=== PATIENT | male | born 1985 | race Caucasian/White ===

== ENCOUNTER 2018-07-26 07:51 | Emergency (ER) | payer MEDICAID ==
[2018-07-26 08:09] VITALS: BP 156/96
[2018-07-26] MEDS ORDERED: MAG HYDROX/AL HYDROX/SIMETH 30 ML UDC PO STA (08:21)
[2018-07-26] MEDS ORDERED: LIDOCAINE VISCOUS 2% 15 ML UDC MM STA (08:22)
--- NOTE | 2018-07-26 08:24 | ED Physician Documentation ---
PD HPI CHEST PAIN - Stated complaint Stated Complaint: CHEST PX - Chief complaint Chief Complaint: General - History obtained from History obtained from: Patient - History of Present Illness Timing - onset: How many hours ago (1) Timing - onset during: Light activity (bending over) Timing - details: Still present Quality: Pain Location: Substernal Associated symptoms: Shortness of air. No: Diaphoresis, Nausea, Vomiting Similar symptoms before: No diagnosis - Additional information Additional information: The patient is a 33-year-old male who presents with substernal chest pain that started about 1 hour prior to arrival while bending over to put on his socks. He reports associated shortness of breath. He denies nausea, vomiting, or diaphoresis. He has had similar pain intermittently in the past but has never had it evaluated, thinking it was due to anxiety. Cardiac risk factors are positive for cigarette smoking and for family history of early [place]. He denies history of hypertension, diabetes, or hyperlipidemia. Review of Systems Constitutional: denies: Fever, Fatigue Ears: denies: Tinnitus/ringing Nose: denies: Congestion Throat: denies: Sore throat Cardiac: reports: Chest pain / pressure. denies: Palpitations Respiratory: reports: Dyspnea. denies: Cough GI: denies: Abdominal Pain, Nausea, Vomiting : denies: Dysuria Skin: denies: Rash Musculoskeletal: denies: Neck pain, Back pain, Extremity swelling Neurologic: denies: Focal weakness, Numbness, Headache PD PAST MEDICAL HISTORY - Past Medical History Cardiovascular: None Respiratory: None Endocrine/Autoimmune: None GI: GERD, Other : None HEENT: None Psych: Other Musculoskeletal: None Derm: None - Past Surgical History Past Surgical History: No - Present Medications Home Medications: Ambulatory Orders Medication Instructions Recorded Confirmed raNITIdine [Zantac] 150 mg PO BID #30 tablet 07/26/18 - Allergies Allergies/Adverse Reactions: Allergies Allergy/AdvReac Type Severity Reaction Status Date / Time No Known Drug Allergies Allergy Verified 03/30/16 13:22 - Social History Does the pt smoke?: Yes Smoking Status: Current every day smoker Does the pt drink ETOH?: Yes Does the pt have substance abuse?: No PD ED PE NORMAL - Vitals Vital signs reviewed: Yes (hypertensive) - General General: Alert and oriented X 3, Well developed/nourished, Other (Overweight.) - HEENT HEENT: Atraumatic, Moist mucous membranes, Pharynx benign - Neck Neck: No adenopathy, No JVD - Cardiac Cardiac: RRR, No murmur - Respiratory Respiratory: No respiratory distress, Clear bilaterally - Abdomen Abdomen: Soft, Other (Rotund abdomen, with tenderness to palpation in the epigastric region, without rebound or guarding.) - Back Back: No CVA TTP - Derm Derm: No rash - Extremities Extremities: No edema, No calf tenderness / cord - Neuro Neuro: Alert and oriented X 3, No motor deficit, Normal speech Results - Vitals Vitals: Vital Signs - 24 hr 07/26/18 08:06 Temperature 36.5 C Heart Rate 83 Respiratory 20 Rate Blood Pressure 156/96 H O2 Saturation 98 Oxygen O2 Source Room air - EKG (time done) 08:00 Rate: Rate (enter#) (86) Rhythm: NSR [place]: Normal Intervals: Normal [place] QRS: Normal Ischemia: ST elevation c/w repol Computer interpretation: Agree with computer PD MEDICAL DECISION MAKING - ED course Complexity details: reviewed results, re-evaluated patient, considered differential, d/w patient ED course: The patient's presentation is most consistent with gastroesophageal reflux. His symptoms resolved completely after administration of GI cocktail. His electrocardiogram reveals no acute ischemic abnormalities. His presentation does not suggest pulmonary etiology. He is being discharged with prescription for ranitidine. I discussed with him the diagnosis, exacerbating factors, outpatient follow-up, as well as potentially worrisome signs or symptoms that should prompt reevaluation in the emergency department. Departure - Departure Disposition: 01 Home, Self Care Clinical Impression: GERD (gastroesophageal reflux disease) Qualifiers: Esophagitis presence: esophagitis presence not specified Qualified Code(s): K21.9 - Gastro-esophageal reflux disease without esophagitis Condition: Stable Instructions: ED GERD Follow-Up: [facility] [Provider Group] Prescriptions: raNITIdine [Zantac] 150 mg PO BID #30 tablet Comments: Minimize coffee, naresh, and alcohol. Take ranitidine twice daily as prescribed. You can use liquid antacid, such as Maalox or Mylanta, if you develop recurrent symptoms. Follow-up with your primary physician within 2 weeks. Call to schedule an appo intment. Return to the emergency department if you develop increasing pain, or otherwise worsening symptoms. Forms: Activity restrictions Discharge Date/Time: 07/26/18 09:11
[2018-07-26] MEDS ORDERED: LIDOCAINE VISCOUS 2% 15 ML UDC MM ONE (08:30)
== END 2018-07-26 09:11 | disposition home or self-care (01) ==
LOC: ED 07:51
DX: K21.9 Gastro-esophageal reflux disease without esophagitis (principal); F17.200 Nicotine dependence, unspecified, uncomplicated; Z82.49 Family history of ischemic heart disease and other diseases of the circulatory system
CPT/HCPCS: 93005; 99283; A9270

== ENCOUNTER 2018-09-30 13:26 | Emergency (ER) | payer MEDICAID ==
[2018-09-30 13:39] VITALS: BP 134/80
--- NOTE | 2018-09-30 15:14 | ED Physician Documentation ---
PD HPI ABD PAIN - Stated complaint Stated Complaint: LOWER ABD PX - Chief complaint Chief Complaint: Abd Pain - History obtained from History obtained from: Patient PD PAST MEDICAL HISTORY - Past Medical History Cardiovascular: None Respiratory: None Endocrine/Autoimmune: None GI: GERD, Other : None HEENT: None Psych: Other Musculoskeletal: None Derm: None - Past Surgical History Past Surgical History: No - Present Medications Home Medications: Ambulatory Orders Medication Instructions Recorded Confirmed raNITIdine [Zantac] 150 mg PO BID #30 tablet 07/26/18 - Allergies Allergies/Adverse Reactions: Allergies Allergy/AdvReac Type Severity Reaction Status Date / Time strawberry Allergy Unknown Verified 09/30/18 13:40 - Social History Does the pt smoke?: Yes Smoking Status: Current every day smoker Does the pt drink ETOH?: Yes Does the pt have substance abuse?: No - Immunizations Immunizations are current?: Yes Results - Vitals Vitals: Vital Signs - 24 hr 09/30/18 09/30/18 13:36 14:17 Temperature 36.8 C Heart Rate 91 Respiratory 14 18 Rate Blood Pressure 134/80 H O2 Saturation 97 Oxygen O2 Source Room air
== END 2018-09-30 15:21 | disposition left against medical advice (07) ==
LOC: ED 13:26
DX: Z53.21 Procedure and treatment not carried out due to patient leaving prior to being seen by health care provider (principal)
CPT/HCPCS: 99282

== ENCOUNTER 2018-11-04 14:44 | Emergency (ER) | payer MEDICAID ==
--- NOTE | 2018-11-04 15:03 | ED Physician Documentation ---
PD HPI UPPER EXT INJURY - Stated complaint Stated Complaint: RT ARM INJ/NAUSEA - Chief complaint Chief Complaint: Trauma Ext - History obtained from History obtained from: Patient - History of Present Illness Location: Right, Shoulder Type of injury: Fall Review of Systems Skin: denies: Abrasion (s), Laceration (s) Musculoskeletal: denies: Neck pain Neurologic: denies: Focal weakness, Numbness PD PAST MEDICAL HISTORY - Past Medical History Cardiovascular: None Respiratory: None Endocrine/Autoimmune: None GI: GERD, Other : None HEENT: None Psych: Other Musculoskeletal: None Derm: None Other Past Medical History: chronic knee pain - Past Surgical History Past Surgical History: Yes - Present Medications Home Medications: Ambulatory Orders Medication Instructions Recorded Confirmed RX: raNITIdine [Zantac] 150 mg PO BID #30 tablet 07/26/18 Methocarbamol [Robaxin] 500 mg PO Q6H PRN #20 tablet 11/04/18 RX: Naproxen 500 mg PO BID #20 tablet 11/04/18 - Allergies Allergies/Adverse Reactions: Allergies Allergy/AdvReac Type Severity Reaction Status Date / Time strawberry Allergy Unknown Verified 11/04/18 14:52 - Social History Does the pt smoke?: Yes Smoking Status: Current every day smoker Does the pt drink ETOH?: Yes ETOH Use: Beer Does the pt have substance abuse?: No - Immunizations Immunizations are current?: Yes PD ED PE NORMAL - Vitals Vital signs reviewed: Yes - General General: Alert and oriented X 3, Well developed/nourished, Other (He appears uncomfortable with guarded range of motion and not really allowing much palpation or attempted range of motion at the proximal humerus nor shoulder girdle. No gross deformity.) - Neck Neck: No bony TTP - Derm Derm: Normal color, Warm and dry - Extremities Extremities: No: Normal ROM s pain (He has guarded range of motion at the right shoulder. He is reluctant to flex and extend the elbow because of pain in the proximal humeral area. Any attempted range of motion of the shoulder is also guarded. He is tender to palpation around the biceps and triceps area as well as the around the shoulder itself in the suprascapular area of the shoulder girdle. The claw collarbone itself is not tender. There is some tenderness at the AC joint.) - Neuro Neuro: No motor deficit, No sensory deficit Results - Vitals Vitals: Vital Signs - 24 hr 11/04/18 15:59 Temperature 36.9 C Heart Rate 74 Respiratory 19 Rate Blood Pressure 136/87 H O2 Saturation 94 Oxygen O2 Source Room air - Rads (name of study) right shoulder Radiology: Prelim report reviewed (no fractures nor dislocations), See rad report PD MEDICAL DECISION MAKING - ED course Complexity details: reviewed results, considered differential (Who is injury to the area. He is diffusely tender enough and guarded on range of motion that is really hard to isolate triceps muscle versus rotator cuff versus other muscles. Will sling him and go with anti-inflammatories and pain meds and have him follow-up with orthopedics. There is no obvious fractures no dislocations and so this treatment would be a commonality for the remaining conditions.), d/w patient Departure - Departure Disposition: 01 Home, Self Care Clinical Impression: Sprain of right upper arm Qualifiers: Encounter type: initial encounter Qualified Code(s): S53.401A - Unspecified sprain of right elbow, initial encounter Condition: Stable Record reviewed to determine appropriate education?: Yes Instructions: ED Sprain Shoulder Follow-Up: Avelino Tolbert MD [Provider Admit Priv/Credential] - Prescriptions: Methocarbamol [Robaxin] 500 mg PO Q6H PRN #20 tablet PRN Reason: Spasms RX: Naproxen 500 mg PO BID #20 tablet Comments: Use a sling to support the shoulder. No overhead reaching, push pull, heavy lifting with that arm for a week or so. Progress activity as able. Gentle range of motion of the shoulder periodically over the next several days to week so it does not stiffen up. Use some anti-inflammatories such as naproxen twice daily. You could add muscle relaxant methocarbamol if needed for stiffness around the shoulder joint. Follow-up with orthopedics if not improved over the next week. At that point it should be hurting less enough to be able to better distinguish which muscles or tendons may be injured. There are no fractures on x-ray. Forms: Activity restrictions Discharge Date/Time: 11/04/18 16:19
[2018-11-04] MEDS ORDERED: ACETAMINOPHEN 500 MG TABLET PO STA (15:12)
[2018-11-04] MEDS ORDERED: IBUPROFEN 600 MG TABLET PO STA (15:12)
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
[2018-11-04 15:59] VITALS: BP 136/87
== END 2018-11-04 16:19 | disposition home or self-care (01) ==
LOC: ED 14:44
DX: S43.401A Unspecified sprain of right shoulder joint, initial encounter (principal); V57.0XXA Driver of pick-up truck or van injured in collision with fixed or stationary object in nontraffic accident, initial encounter; W22.11XA Striking against or struck by driver side automobile airbag, initial encounter; Y92.410 Unspecified street and highway as the place of occurrence of the external cause; F17.200 Nicotine dependence, unspecified, uncomplicated
CPT/HCPCS: 73060; 99283; A9270

== ENCOUNTER 2020-01-10 23:48 | Emergency (ER) | payer MEDICAID ==
--- NOTE | 2020-01-11 00:32 | ED Physician Documentation ---
PD HPI LOWER EXT INJURY - Stated complaint Stated Complaint: ANKLE PX - Chief complaint Chief Complaint: Trauma Ext - History obtained from History obtained from: Patient - History of Present Illness PD HPI LOW EXT INJURY LOCATION: Left, Ankle, Foot Type of injury: Twist Timing - onset: Yesterday Timing - details: Abrupt onset Pain level now: 8 Improved by: Rest, Immobilization Worsened by: Moving, Palpating Associated symptoms: Swelling Similar symptoms before: Has not had sx before Recently seen: Not recently seen - Additional information Additional information: twisted ankle when he stepped into a hole while playing with his dog yesterday, c/o sudden onset left ankle and foot pain that has gradually worsened since incident. distinctly worse with movement, palpation, weight-bearing. drove self to ED Review of Systems Skin: denies: Abrasion (s), Laceration (s) Musculoskeletal: reports: Extremity pain, Joint pain, Extremity swelling, Joint swelling, Pain with weight bearing Neurologic: denies: Focal weakness, Numbness PD PAST MEDICAL HISTORY - Past Medical History Cardiovascular: None Respiratory: None Endocrine/Autoimmune: None GI: GERD, Other : None HEENT: None Psych: Other Musculoskeletal: Gout Derm: None - Past Surgical History Past Surgical History: Yes - Present Medications Home Medications: Ambulatory Orders Medication Instructions Recorded Confirmed raNITIdine [Zantac] 150 mg PO BID #30 tablet 07/26/18 Naproxen 500 mg PO BID #20 tablet 11/04/18 methocarbamoL [Robaxin] 500 mg PO Q6H PRN #20 tablet 11/04/18 Oxycodone HCl/Acetaminophen 1 - 2 each PO Q6H PRN #20 tablet 01/11/20 [Percocet 5-325 mg Tablet] - Allergies Allergies/Adverse Reactions: Allergies Allergy/AdvReac Type Severity Reaction Status Date / Time strawberry Allergy Unknown Verified 01/11/20 00:00 - Social History Does the pt smoke?: Yes Smoking Status: Current every day smoker Does the pt drink ETOH?: Yes Does the pt have substance abuse?: No - Immunizations Immunizations are current?: Yes PD ED PE NORMAL - Vitals Vital signs reviewed: Yes - General General: Alert and oriented X 3, Well developed/nourished, Other (appears uncomfortable due to pain) - Neuro Neuro: No motor deficit, No sensory deficit PD ED PE EXPANDED - Extremities Extremities: Tenderness, Limited ROM, Swelling, Left ankle, Left foot Results - Vitals Vitals: Vital Signs - 24 hr 01/10/20 01/11/20 23:57 03:22 Temperature 36.4 C L 37.0 C Heart Rate 90 83 Respiratory 14 19 Rate Blood Pressure 147/102 H 145/93 H O2 Saturation 98 98 Oxygen O2 Source Room air - Rads (name of study) left ankle xrays Radiology: Prelim report reviewed, See rad report left foot xrays Radiology: Prelim report reviewed, See rad report Procedures - Splint (location) Lower extremity left Splint applied by: Tech Type of splint: Ankle airsplint Other: Patient tolerated well, No complications, Neurovascular intact, Good alignment, Crutches provided PD MEDICAL DECISION MAKING - ED course Complexity details: reviewed results, re-evaluated patient, considered differential, d/w patient Departure - Departure Disposition: 01 Home, Self Care Clinical Impression: Sprain of left ankle Condition: Good Instructions: ED Sprain Ankle W X Ray, ED Crutch Walking, ED Sprain Foot Follow-Up: Suhail Julien MD [Provider Admit Priv/Credential] - Prescriptions: Oxycodone HCl/Acetaminophen [Percocet 5-325 mg Tablet] 1 - 2 each PO Q6H PRN #20 tablet PRN Reason: pain Discharge Date/Time: 01/11/20 03:24
[2020-01-11] MEDS ORDERED: IBUPROFEN 800 MG TABLET PO STA (00:41)
[2020-01-11] MEDS ORDERED: oxyCODONE/ACET 5/325 Prepack 4 PO STA (02:31)
[2020-01-11 03:23] VITALS: BP 145/93
--- NOTE | 2020-01-11 08:47 | XRAY Report ---
PROCEDURE: Ankle 3 View LT INDICATIONS: injury, pain, tenderness TECHNIQUE: 3 views of the ankle were acquired. COMPARISON: None. FINDINGS: Bones: There is a linear lucency through the base of a prominent posterior talar osteophyte projecti ng off the posterior talar process. No other fractures or dislocations. Ankle mortise is normally al igned. No suspicious bony lesions. Prominent plantar calcaneal enthesophyte. Degenerative changes o f the dorsal left midfoot are present. Soft tissues: No tibiotalar joint effusion. Achilles tendon appears normal. IMPRESSION: 1. Possible minimally displaced fracture through the base of an osteophyte at the posterior process o f the talus. Recommend correlating with physical examination. 2. Prominent plantar calcaneal enthesophyte. No significant discrepancy with initial interpretation by overnight radiologist. Reviewed by: Waldo Angulo MD on 01/11/2020 8:45 AM PDT Approved by: Waldo Angulo MD on 01/11/2020 8:45 AM PDT Station ID: [id number]
--- NOTE | 2020-01-11 08:52 | XRAY Report ---
PROCEDURE: Foot 3 View LT INDICATIONS: fall, pain, tenderness TECHNIQUE: 3 views of the foot were acquired. COMPARISON: Ankle radiographs from same day. FINDINGS: Bones: There is a minimally displaced fracture involving the distal margin of the hallux sesamoid lucina ne. This appears age indeterminate. Previously described fracture at the base of a prominent osteophy te off the posterior talar process is not as conspicuous on this examination. No other fractures visu alized. Prominent plantar calcaneal enthesophyte. Hallux valgus angulation of the left great toe with associated degenerative change. Dorsal left midfoot osteoarthrosis. No significant overlying soft ti ssue swelling. Overall osseous alignment of the left foot is maintained. No suspicious bony lesions. Soft tissues: No tibiotalar joint effusion. Achilles tendon appears normal. IMPRESSION: 1. Minimally displaced age indeterminate fracture involving the distal margin of the hallux sesamoid bone. Recommend correlating with physical examination. 2. Previously described fracture at the base of a prominent osteophyte off the posterior talar proces s is not well-visualized. Please see separate report of left ankle for further details. 3. Prominent plantar calcaneal enthesophyte. No significant discrepancy with initial interpretation by overnight radiologist. Reviewed by: Waldo Angulo MD on 01/11/2020 8:51 AM PDT Approved by: Waldo Angulo MD on 01/11/2020 8:51 AM PDT Station ID: [id number]
== END 2020-01-11 03:24 | disposition home or self-care (01) ==
LOC: ED 23:48
DX: S93.402A Sprain of unspecified ligament of left ankle, initial encounter (principal); X50.1XXA Overexertion from prolonged static or awkward postures, initial encounter; Y93.K9 Activity, other involving animal care; Y92.096 Garden or yard of other non-institutional residence as the place of occurrence of the external cause; F17.200 Nicotine dependence, unspecified, uncomplicated
CPT/HCPCS: 73610; 73630; 99283; A9270

== ENCOUNTER 2020-04-25 14:07 | Outpatient (CLI) | payer MEDICAID ==
--- NOTE | 2020-04-25 15:21 | SLEEP CARE CONSULTATION ---
Information from patient questionnaire entered by Sarah Parker. I have reviewed and concur with the information entered by Sarah Parker. This document represents the service I personally performed and the decisions made by me, Keiry Servin ARNP. History of Present Illness Service Date and Time: 04/25/2020 1407 Reason for Visit: New patient Chief Complaint: reports: Unrefreshed sleep (sometimes), Snoring, Observed pauses in breathing, Frequent awakenings at night, Other (not getting deep enough sleep, lack of sleep). denies: Insomnia, Excessive daytime sleepiness, Fatigue Date of Onset: Over 5 years Usual bedtime: 6:00 AM Time it takes to fall asleep: 30 min Snores at night: Yes Observed to quit breathing while asleep: Yes Sleeps alone due to snoring: No Number of times waking at night: 3-4 Reasons for waking at night: reports: Snoring, Gasping for air, Other (Stop breathing and baby). denies: Choking Toss, Turn, or Twitch while sleeping: Yes Recalls having dreams: No Usually gets out of bed at: 11:00 AM Feels refreshed in the morning: No Morning headache: No Sleepy or fatigued during the day: Yes (Yes and no) Ever fallen asleep while driving: No Takes day naps: Yes Dreams during day naps: Yes Prior sleep studies: No Additional HPI information: I had the pleasure of seeing VALENTIN FLORES today regarding the possibility of him having a sleep disorder. His current complaints are snoring and observed pauses in breathing. He feels that he is not always getting refreshed sleep, he has a lack of sleep and doesn't feel he gets enough deep sleep. 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 He did this for a year and now recently restarted the last four months. He is more worried about the pauses in breathing when on his back and his loud snore. His sleeps in same bed. His father is a very loud snorer and has to sleep in a chair. He has never been evaluated for sleep apnea. - Parasomnia Symptoms Ever been unable to move upon waking from sleep: No Walks in sleep: No Talks in sleep: Yes Ever acted out dreams in sleep: No Ever felt weak in the knees when startled or emotional: No Bothered by creepy, crawly, restless sensations in legs: Yes (and no) Problems with memory or concentration: Yes (very forgetful) Subjective Initial [place] Sleepiness Scale score: 9 (in 2020) Past Medical History Past Medical History: reports: Gout, Anxiety, GERD. denies: Hypertension, Arrythmia, Depression Social History The patient's occupation is a garbage truck driver. Patient is Single and lives in [place]. Have you smoked in the past 12 months: Yes Cigarettes per day (20/pack): 20 Years of smokin Smoking Pack Years: 8.0 Alcohol use: Yes Alcohol amount and frequency: Once or twice a week Caffeine use: Yes Caffeine amount and frequency: 2-3 cups of coffee in morning; 1-2 more in afternoon before work Family History Family history of sleep disordered breathing: Yes (Dad) Family Hx Sleep Apnea: Father: Snoring (sister), Sibling: Snoring Allergies and Home Medications Drug allergies reviewed: Yes (NKDA) Home medication list reviewed: Yes Allergy and home medication list: Zantac Ibuprofen, as needed Review of Systems Weight gain over past 5 years: 20 Weight loss over past 5 years: 30 Cardiovascular: denies: high blood pressure Respiratory: reports: shortness of breath Gastrointestinal: reports: heartburn Urinary: reports: urgency Neurological: denies: headaches Psychiatric: reports: anxiety Ear/Nose/Throat: reports: sinus problems (deviated septum), injury to nose (nose broken 3 times), wisdom teeth removed. denies: nasal congestion, tonsillectomy Immunologic: reports: allergies to food or environment (strawberries) Physical Exam Blood Pressure: 121/81 Cuff size: wrist Heart Rate: 80 O2 Saturation: 98 Height: 5 ft 4 in Weight: 263 lb Body Mass Index: 45.1 BMI Classification: Morbidly Obese Neck circumference: 18 (inches) Nasal exam: positive: erythema Nostrils: patent to airflow Turbinates: swollen Mouth and throat: narrow oropharynx Hard palate: arched Uvula visualization: 50% Mallampati Class II Tongue: enlarged in size with teeth newton on lateral edges Tonsils: 2+ Heart: regular rate and rhythm Lungs: clear bilaterally Impression and Plan 1. Suspected Obstructive Sleep Apnea-Hypopnea Syndrome, as suggested by a history of loud and irregular snoring, observed cessation of breath while asleep, gasping or choking in sleep, frequent awakening during the night, unrefreshed sleep, and cognitive impairment. I reviewed with patient that a narrow oropharynx and obesity are common predisposing factors for obstructive sleep apnea-hypopnea syndrome. I recommend proceeding to polysomnography to confirm the diagnosis and to assess severity. If the patient has significant sleep disordered breathing, a manual CPAP titration study will also be performed to find the optimal treatment pressure. I informed the patient of what the sleep studies involve and after some discussion, obtained agreement to proceed. The pathophysiology of obstructive sleep apnea-hypopnea syndrome was discussed with the patient and health risks of cardiovascular and cerebrovascular disease if not treated. AAS brochure for obstructive sleep apnea-hypopnea syndrome given and reviewed. Risks of drowsy driving discussed in detail and patient advised to avoid long distance driving and to pull worker at the first sign of drowsiness. Patient agreed to plan. * Schedule polysomnography +- manual CPAP titration study and return in 1-2 weeks after the study to discuss result and initiate therapy. * Avoid long distance driving or driving when feeling sleepy. * Avoid alcohol, sedative and muscle relaxant around bedtime. * Attempt to lose weight. * Review instructions provided by trained office staff on how to prepare for the sleep study. * Return for follow-up after sleep study completed. Counseling Topics: Weight loss health impact Visit Type: In Office Time Spent with Patient (minutes): 30 Provider Statement: I spent 100% of the Face to Face Visit with the patient with greater than 50% spent counseling the patient and coordination of care.
[2020-04-25 15:22] VITALS: BP 121/81
== END 2020-04-25 14:08 | disposition home or self-care (01) ==
LOC: SC 14:07
PROVIDERS: ATTEND Nurse Practitioner Family
DX: G47.8 Other sleep disorders (principal); R41.89 Other symptoms and signs involving cognitive functions and awareness; R06.81 Apnea, not elsewhere classified; R06.83 Snoring; E66.01 Morbid (severe) obesity due to excess calories; Z68.42 Body mass index [BMI] 45.0-49.9, adult
CPT/HCPCS: 99203; 99212

== ENCOUNTER 2020-07-11 13:43 | Outpatient (CLI) | payer MEDICAID | END 2020-07-11 13:44 | disposition home or self-care (01) | LOC: SC 13:43 | PROVIDERS: ATTEND Nurse Practitioner Family | DX: G47.33 Obstructive sleep apnea (adult) (pediatric) (principal); R09.02 Hypoxemia; E66.9 Obesity, unspecified; Z68.42 Body mass index [BMI] 45.0-49.9, adult | CPT/HCPCS: 95806 ==

== ENCOUNTER 2022-01-28 08:44 | Outpatient (CLI) | payer MEDICAID ==
--- NOTE | 2022-01-28 10:41 | XRAY Report ---
PROCEDURE: Knee 3 View RT INDICATIONS: RIGHT KNEE PAIN TECHNIQUE: 3 views of the right knee(s) were acquired. COMPARISON: None. FINDINGS: Bones: No fractures or dislocations. No suspicious bony lesions. Chronic fragmentation of the ante rior tibial tubercle. Mild tricompartment periareolar articular osteophyte formation. Soft tissues: Moderate joint effusion. No suspicious soft tissue calcifications. IMPRESSION: 1. Mild osteoarthritis. 2. Findings suggestive of remote Clare-Schlatter disease. 3. Knee joint effusion. 4. No acute fracture. No osseous lesion. If symptoms and/or clinical suspicion for pathology continue , further assessment with repeat plain films, or advanced imaging (e.g., CT, MRI, or bone scan) is re commended for further assessment. Reviewed by: Theresa Muir MD on 01/28/2022 10:39 AM PDT Approved by: Theresa Muir MD on 01/28/2022 10:39 AM PDT Station ID: [id number]
== END 2022-01-28 08:45 | disposition home or self-care (01) ==
LOC: DI.S 08:44
PROVIDERS: ATTEND Physician Assistant
DX: M25.461 Effusion, right knee (principal); M17.11 Unilateral primary osteoarthritis, right knee

== ENCOUNTER 2022-02-19 08:00 | Outpatient (CLI) | payer OTHER, MEDICAID ==
--- NOTE | 2022-02-19 15:41 | XRAY Report ---
PROCEDURE: Knee 3 View RT INDICATIONS: RIGHT KNEE PAIN TECHNIQUE: 3 views of the right knee(s) were acquired. One view of the left. COMPARISON: Right knee radiographs 01/28/2022. FINDINGS: Bones: No fractures or dislocations. Fragmentation at the tibial tuberosity is unchanged. Tiny osteo phyte. No suspicious bony lesions. Soft tissues: Small joint effusion. No suspicious soft tissue calcifications. IMPRESSION: Mild DJD at the right knee. Small joint effusion. Stable fragmentation of the tibial tuberosity which could be the sequelae of Clare-Schlatter's disea se. Reviewed by: Norberto Baez MD on 02/19/2022 3:40 PM PDT Approved by: Norberto Baez MD on 02/19/2022 3:40 PM PDT Station ID: [id number]
== END 2022-02-19 23:59 | disposition home or self-care (01) ==
LOC: DI.WOS 08:00
PROVIDERS: ATTEND Orthopaedic Surgery
DX: M17.11 Unilateral primary osteoarthritis, right knee (principal); M25.461 Effusion, right knee

== ENCOUNTER 2022-06-23 23:20 | Emergency (ER) | payer OTHER, MEDICAID ==
--- OUTSIDE RECORDS SUMMARY | 2022-06-23 23:29 | EXTERNAL MEDICAL SUMMARY RPT | Continuity of Care Document ---
:1985 Author Organization [facility] Address [address] [place] [address] Phone Care Team Providers Name Role Phone Unavailable Unavailable Unavailable Isabel Aleman Unavailable Unavailable Allergies No information. Encounters No information. Functional Status No information. Immunizations No information. Medications No information. Problems No information. Procedures date description facility 2022-05-22 00:00 Visit Code Hold [facility] Brian Results/Labs No information. Social History date description facility 2022-05-22 00:00 Current every day smoker [facility] joy Vital Signs date measurement value units 2022-05-22 00:00 BMI 46.33 kg/m2 2022-05-22 00:00 BP_diastolic 90 mmHg 2022-05-22 00:00 BP_systolic 132 mmHg 2022-05-22 00:00 heart_rate 83 /min 2022-05-22 00:00 height_metric 167.64 cm 2022-05-22 00:00 height_standard 66 in 2022-05-22 00:00 respiration_rate 16 /min 2022-05-22 00:00 temperature_metric 36.11 C 2022-05-22 00:00 temperature_standard 97 F 2022-05-22 00:00 weight_metric 129.73 kg 2022-05-22 00:00 weight_standard 286 lb
[2022-06-23 23:33] VITALS: BP 159/94
[2022-06-23] MEDS ORDERED: BACITRACIN ZINC OINT 1 PACKET TOP STA (23:43)
--- NOTE | 2022-06-23 23:45 | ED Physician Documentation ---
PD HPI UPPER EXT INJURY - Stated complaint Stated Complaint: LT FINGER LAC - Chief complaint Chief Complaint: Laceration - History obtained from History obtained from: Patient - Additonal information Additional information: Pt comes to the ED with CC of L index finger laceration accidentally with razor knife at work tonight. No other injuries. Last tetanus within past 10 years. No compromised strength/movement since injury. PD PAST MEDICAL HISTORY - Past Medical History Cardiovascular: None Respiratory: None Endocrine/Autoimmune: None GI: GERD, Other : None HEENT: None Psych: Other Musculoskeletal: Gout Derm: None - Past Surgical History Past Surgical History: Yes - Present Medications Home Medications: Ambulatory Orders Medication Instructions Recorded Confirmed raNITIdine [Zantac] 150 mg PO BID #30 tablet 07/26/18 Naproxen 500 mg PO BID #20 tablet 11/04/18 methocarbamoL [Robaxin] 500 mg PO Q6H PRN #20 tablet 11/04/18 Oxycodone HCl/Acetaminophen 1 - 2 each PO Q6H PRN #20 tablet 01/11/20 [Percocet 5-325 mg Tablet] - Allergies Allergies/Adverse Reactions: Allergies Allergy/AdvReac Type Severity Reaction Status Date / Time strawberry Allergy Unknown Verified 01/11/20 00:00 - Social History Does the pt smoke?: Yes Smoking Status: Current every day smoker Does the pt drink ETOH?: Yes Does the pt have substance abuse?: No - Immunizations Immunizations are current?: Yes PD ED PE NORMAL - Vitals Vital signs reviewed: Yes - General General: Alert and oriented X 3, No acute distress, Well developed/nourished - HEENT HEENT: Atraumatic, PERRL, EOMI, Moist mucous membranes - Neck Neck: Supple, no meningeal sign - Cardiac Cardiac: Strong equal pulses - Respiratory Respiratory: No respiratory distress - Derm Derm: Normal color, Warm and dry, No rash, Other (5 mm laceration to radial aspect L index finger. Bleeding controlled. Depth extends to SQ fat. Does not overlie tendon tract.) - Extremities Extremities: No deformity, Normal ROM s pain, Other (Intact strength of flexion and extension at all joints of L index finger.) - Neuro Neuro: Alert and oriented X 3 - Psych Psych: Normal mood, Normal affect Results - Vitals Vitals: Oxygen O2 Source Room air Procedures - Laceration (location) L index finger Length in cm: 0.5 Wound type: Linear, Into subcut fat, Clean Neurovascular status: Sensory intact, Motor intact, Vascular intact Tendon involvement: Tendon intact Anesthesia: Lidocaine 1% Wound preparation: Hibiclens, Irrigated copiously NS, Wound explored, To the base Skin layer closure: Interrupted, Size #-0 - enter number (5.0), Sutures - enter # (1), Other (vicryl) Other: Patient tolerated well, No complications, Dressing applied, Tetanus UTD PD Medical Decision Making - ED course Complexity details: considered differential, d/w patient ED course: I d/w pt that his lac is very small, and would likely do well closing on its own. 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 This was done, as above. We have discussed wound care at home, as well as the usual indications for return. Departure - Departure Disposition: 01 Home, Self Care Clinical Impression: Laceration Condition: Stable Instructions: ED Laceration Hand Comments: You have a very small cut which will heal well. A single suture has been placed. This is an absorbable suture, meaning that it will disintegrate on its own and fall out. Since the cut is very short, it would heal well even without the suture, and as such, if you would like to snip the suture out after 5 days, you may. Please keep the wound clean and generally dry otherwise. You may let water or soap run over the wound but please do not rub, scrub, or immerse the wound until the sutures out. If you notice redness or swelling spreading progressively away from the wound, please have it rechecked. Discharge Date/Time: 06/23/22 23:51
== END 2022-06-23 23:51 | disposition home or self-care (01) ==
LOC: ED 23:20
DX: S61.211A Laceration without foreign body of left index finger without damage to nail, initial encounter (principal); W26.0XXA Contact with knife, initial encounter; Y92.89 Other specified places as the place of occurrence of the external cause; Y99.0 Civilian activity done for income or pay; F17.200 Nicotine dependence, unspecified, uncomplicated
CPT/HCPCS: 12001; 99282; A9270

== ENCOUNTER 2022-07-19 08:22 | Outpatient (CLI) | payer OTHER ==
--- NOTE | 2022-07-19 15:01 | MRI Report ---
PROCEDURE: KNEE WO - RT INDICATIONS: RIGHT PATELLOFEMORAL SYN TECHNIQUE: Noncontrast sagittal PD fast spin echo and T2 fast spin echo with fat saturation, sagittal 3-D gradie nt sequence with fat saturation; coronal T1 spin echo and PD fast spin echo with fat saturation, and axial PD fast spin echo with fat saturation through the knee. COMPARISON: X-ray right knee, 02/19/2022. FINDINGS: Image quality: Excellent. Menisci: There is large complex tear involving the posterior horn and body of the lateral meniscus. T here is a small radial tear in the free edge of the anterior horn of the lateral meniscus. Intrasubst ance degeneration is noted of the anterior horn the lateral meniscus. The medial meniscus demonstrates normal morphology and internal signal. Cruciate ligaments: The anterior and posterior cruciate ligaments appear intact. Medial structures: The medial collateral ligament appears intact. The semimembranosus tendon insert ions and meniscocapsular junction appear intact. Visualized portions of the pes anserinus tendons ap pear normal. No abnormal bursal fluid. Lateral structures: The lateral collateral ligament and the biceps femoris tendon appear intact. Th e popliteus tendon appears normal. Iliotibial band appears normal. Anterior structures: The quadriceps and patellar tendons appear intact. Moderate quadriceps tendini tis and patellar tendinitis. There is an ossicle in the tibial tubercle at the quadriceps tendon anibal chment in keeping with Clare-Schlatter disease. Patellar alignment is normal. No femoral trochlear dysplasia or ventral trochlear prominence. No edema in the infrapatellar fat pad. Bones and cartilage: No bone marrow contusions or fractures. Fragmentation of the tibial tubercle c onsistent with Clare-Schlatter disease. There is mild cartilage thinning and fibrillation in the lateral femorotibial compartment. Near full -thickness cartilage fissures are seen in the lateral femoral condyle and lateral tibial plateau. Joint space: There is small knee joint effusion. No Hinton's cyst. Normal appearing synovial plicae are incidentally noted. There are foci enlarged lymph nodes posterior to the knee. IMPRESSION: 1. Complex tear of the body and posterior horn the lateral meniscus. There is also a small radial tea r of the anterior horn of the lateral meniscus. 2. Loss of cartilage in the lateral femorotibial compartment. 3. Phoenix-Schlatter disease. 4. Moderate quadriceps and patellar tendinitis. 5. Small knee joint effusion. Reviewed by: Tong Fowler MD on 07/19/2022 1:59 PM AKDT Approved by: Tong Fowler MD on 07/19/2022 1:59 PM AKDT Station ID: [id number]
== END 2022-07-19 08:23 | disposition home or self-care (01) ==
LOC: DI 08:22
PROVIDERS: ATTEND Orthopaedic Surgery
DX: S83.271A Complex tear of lateral meniscus, current injury, right knee, initial encounter (principal); M92.521 Juvenile osteochondrosis of tibia tubercle, right leg; M25.461 Effusion, right knee

== ENCOUNTER 2022-10-16 06:37 | Day surgery (SDC) | payer OTHER, MEDICAID ==
--- NOTE | 2022-10-15 12:30 | ANESTHESIA ---
Pre-Anesthesia VS, & Labs - Diagnosis right lateral meniscus tear, internal derangement right knee - Procedure right knee arthroscopy w partial meniscus repair Height: 5 ft 4 in - NPO >8 hours Home Medications and Allergies Acetaminophen [Tylenol] 500 mg PO DAILY PRN 09/11/22 Ibuprofen 200 mg PO DAILY PRN 09/11/22 Allergies/Adverse Reactions: Allergies Allergy/AdvReac Type Severity Reaction Status Date / Time strawberry Allergy Severe Anaphylaxis Verified 10/16/22 07:01 latex AdvReac Rash Verified 10/16/22 07:01 Anes History & Medical History - Anesthetic History Anesthesia Complications: reports: Post-Operative Nausea/Vomiting, Other-see comment (combative) Family history of Anesthesia Complications: Denies Family history of Malignant Hyperthermia: Denies - Medical History Cardiovascular: reports: None Pulmonary: reports: Sleep apnea (no CPAP, poss severe VNAITA, discussed potential for extended monitoring postop) Gastrointestinal: reports: GERD (rare diet related symptoms), Other Urinary: reports: None Neuro: reports: None Musculoskeletal: reports: Gout Endocrine/Autoimmune: reports: None Blood Disorders: reports: None Skin: reports: None Smoking Status: Current every day smoker - Surgical History General: reports: Other Exam General: Alert, Oriented x3, Cooperative Dental: WNL Mouth Opening: Greater than 4 Fingerbreadths Neck Mobility: Normal Mallampati classification: II Thyromental Distance: 4-6 cm (martines) Plan Anesthesia Type: General Consent for Procedure(s) Verified and Reviewed: Yes Code Status: Attempt Resuscitation ASA classification: 3-Severe systemic disease Is this case an emergency?: No
[2022-10-16] MEDS ORDERED: PROPOFOL 500 MG/50 ML 500 MG/50 ML VIAL ONE (06:53)
[2022-10-16] MEDS ORDERED: LACTATED RINGERS 1,000 ML IV ONE ×2 (06:54→09:09)
[2022-10-16] MEDS ORDERED: LIDOCAINE-PF 2% 10 ML AMP SUBQ ONE (06:57)
[2022-10-16] MEDS ORDERED: MIDAZOLAM 2 MG/2 ML VIAL ONE (07:03)
[2022-10-16] MEDS ORDERED: fentaNYL 100 MCG/2 ML VIAL ONE ×2 (07:03→08:18)
[2022-10-16] MEDS ORDERED: SODIUM CHLORIDE 0.9% 10 ML VIAL IVP ONE (07:09)
[2022-10-16] MEDS ORDERED: ROPIVACAINE 0.5% PF 30 ML VIAL ONE (07:09)
[2022-10-16] MEDS ORDERED: BACITRACIN ZINC OINT 1 PACKET TOP ONE ×2 (07:10→08:05)
[2022-10-16] MEDS ORDERED: BUPIVACAINE 0.25% PF 30 ML VIAL ONE ×2 (07:10→07:19)
[2022-10-16] MEDS ORDERED: EPINEPHrine 1 MG/ML AMP ONE (07:10)
[2022-10-16] MEDS ORDERED: ATROPINE ABBOJECT 1 MG/10 ML SYRINGE IVP PRN (07:29)
[2022-10-16] MEDS ORDERED: ePHEDrine 50 MG/ML VIAL IVP PRN (07:29)
[2022-10-16] MEDS ORDERED: NALOXONE 0.4 MG/ML VIAL IVP PRN (07:29)
[2022-10-16] MEDS ORDERED: fentaNYL 100 MCG/2 ML VIAL IVP PRN (07:29)
[2022-10-16] MEDS ORDERED: ONDANSETRON 4 MG/2 ML VIAL IVP PRN (07:29)
[2022-10-16] MEDS ORDERED: LACTATED RINGERS 1,000 ML IV SCH (08:00)
[2022-10-16] MEDS ORDERED: EPINEPHrine 1 MG/ML AMP IR ONE (08:04)
[2022-10-16] MEDS ORDERED: BUPIVACAINE 0.25% PF 30 ML VIAL SUBQ ONE ×2 (08:05)
[2022-10-16] MEDS ORDERED: ONDANSETRON 4 MG/2 ML VIAL ONE (08:11)
[2022-10-16] MEDS ORDERED: DEXAMETHASONE 4 MG/ML VIAL ONE ×2 (08:11→08:16)
--- NOTE | 2022-10-16 09:07 | OPERATIVE REPORT ---
Operative Report - General Procedure Date: 10/16/22 Planned Procedure: Arthroscopy knee right knee, partial lateral meniscectomy, possible microfracture Pre-Op Diagnosis: Torn lateral meniscus, focal chondral defect of condyle right knee Procedure Performed: Arthroscopy right knee, partial lateral meniscectomy, chondroplasty lateral femoral condyle Post Op Diagnosis: Same as preop diagnosis - Procedure Note Primary Surgeon: Suhail Julien MD Secondary Surgeon: Samira De La Vega PAC Anesthesia Provider: Gael Mendoza CRNA Anesthesia Technique: General ET tube Estimated Blood Loss (mL): 5 Indications: This is a 37-year-old man with chronic knee pain anterior and lateral associated with repetitive bent knee activities associated with work activities. 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 The patient had no injury to his right knee. He does have obesity and a family history of knee degenerative joint disease. The patient has tried modified activity, anti-inflammatory medications, cortisone injection, knee brace but has had persistent pain to his right knee with work activities. His exam did show lateral joint line tenderness, good stability and alignment. His MRI scan was abnormal and suggested focal articular cartilage damage to lateral compartment with torn lateral meniscus right knee Findings: In the right knee was stable under anesthesia. The medial compartment, notch, patellofemoral joint, medial and lateral gutters of the right knee appeared normal. The lateral compartment had a horizontal cleavage tear with degenerative fraying to the edges of the tear. The tear involve the middle third of the lateral meniscus. The meniscal capsular junction was intact as well as the meniscal root. The cruciate ligaments were intact. There was focal articular defect to the weightbearing surface of the lateral femoral condyle measuring about a centimeter. This was a crevice with grade 3/4 articular cartilage damage, no full-thickness lesions present Complications: None - Other Other Information/Narrative: The patient was brought to the operating room, placed in the Supine position. He received a general endotracheal anesthetic. The right knee was stable to ligamentous testing. He does have some joint hypermobility and the ability to hyperextend his right knee. The right lower extremity was prepped and draped in a sterile manner in the usual fashion. A lateral thigh post was applied to the operating room table. The right lower extremity was prepped and draped in a sterile manner in the usual fashion. A timeout procedure was performed by the entire operating team and all were in agreement. A 3 portal arthroscopic technique was utilized. The outflow was through a superior lateral portal. The diagnostic arthroscope was inserted through the anterolateral portal and the instrument portal was to the anteromedial portal. The Blippar 4 mm 30 degree a Jimich diagnostic arthroscope and video camera was used throughout the procedure. Inflow was brought through the arthroscope using the Arthrex pump. Complete diagnostic arthroscopy was performed and was facilitated by the use of an arthroscopic probe. The abnormal findings were confined to the lateral compartment. The lateral compartment was opened with a figure 4 position. The radiofrequency probe was used to debride the superior and inferior halves of the horizontal cleavage tear. A meniscal biterWas used to trim the inferior leaf to a stable rim. The Arthrex torpedo shaver was utilized to further debride the horizontal cleavage tear and to perform a chondroplasty at high speed to the lateral femoral condyle defect. There is no full-thickness articular car normal condyle. An arthroscopic probe was used to confirm the integrity of the lateral meniscus after the partial lateral meniscectomy. The wounds were closed with 3-0 nylon and injected with half percent Marcaine, total of 10 cc. A dry sterile bandage with Jose Luis wrap was applied. A physician obstetric assistant was medically necessary to help with prepping and draping, positioning, protection of vital structures, assistance during the procedure including wound closure, dressing and/or splinting.He received 2 g of Ancef intravenously and tolerated procedure well
[2022-10-16] MEDS ORDERED: ACETAMINOPHEN 500 MG TABLET PO PRN (09:09)
[2022-10-16] MEDS ORDERED: oxyCODONE 5 MG TABLET PO PRN (09:09)
[2022-10-16] MEDS ORDERED: CELECOXIB 100 MG CAPSULE PO PRN (09:09)
[2022-10-16] MEDS ORDERED: ONDANSETRON ODT 4 MG TABLET TL PRN (09:09)
[2022-10-16] MEDS: HYDROmorphone 0.5 MG/0.5 ML SYRINGE IVP PRN ×3 (09:30→10:00)
--- NOTE | 2022-10-16 10:38 | ANESTHESIA POST OP EVALUATION ---
Anesthesia Post Eval - Post Anesthesia Eval Vitals: Last Vital Signs Temp 36.5 C 10/16/22 10:18 Pulse 86 10/16/22 10:35 Resp 16 10/16/22 10:35 BP 105/77 10/16/22 10:35 Pulse Ox 94 10/16/22 10:35 O2 Flow Rate 0 10/16/22 06:56 CV Function Including HR & BP: Stable Pain Control: Satisfactory Nausea & Vomiting: Negative Mental Status: Baseline Respiratory Status: Airway Patent Hydration Status: Satisfactory Anesthesia Complications: None
[2022-10-16 10:39] VITALS: BP 125/88
[2022-10-16] MEDS ORDERED: oxyCODONE 5 MG TABLET ONE (10:52)
== END 2022-10-16 06:38 | disposition home or self-care (01) ==
LOC: SDS 06:37
PROVIDERS: ATTEND Orthopaedic Surgery
DX: S83.281A Other tear of lateral meniscus, current injury, right knee, initial encounter (principal); M23.8X1 Other internal derangements of right knee; G47.33 Obstructive sleep apnea (adult) (pediatric); F17.200 Nicotine dependence, unspecified, uncomplicated
CPT/HCPCS: 29881; A9270; C1713; J7120

== ENCOUNTER 2022-10-24 08:15 | Outpatient (CLI) | payer MEDICAID ==
--- NOTE | 2022-10-24 08:56 | SLEEP CARE CONSULTATION ---
Information from patient questionnaire entered by Monica Syed. I have reviewed and concur with the information entered by Monica Syed. This document represents the service I personally performed and the decisions made by me, Keiry Servin ARNP. History of Present Illness Service Date and Time: 10/24/2022 0815 Previous diagnosis: Severe, Obstructive Sleep Apnea-Hypopnea Syndrome AHI: 34.6 (in 2020) Reason for follow up: annual (LAST SEEN 07/2020), other (PT NEVER GOT SLEEP STUDY RESULTS ) Accompanied by: child Prior sleep studies: No HPI additional information: I had the pleasure of seeing VALENTIN FLORES today regarding the possibility of him having a sleep disorder. His current complaints are unrefreshed sleep, snoring, observed pauses in breathing and frequent night awakenings. He has a history of anxiety and gastric reflux. He did complete a HST on 07/12/2020 but did not follow up in office to hear results. I explained the pathophysiology behind obstructive sleep apnea. We then spent quite a bit of time discussing different treatment options. For mild obstructive sleep apnea, surgery and oral appliance are alternatives to nasal CPAP therapy but in moderate or severe cases, nasal CPAP is the most effective and reliable treatment. Because apnea is primarily in supine position, then positional management therapy could be effective. Methods discussed such as positioning with pillows, using a T-shirt with tennis balls in the back or commercial products that have a pillow format on back to prevent supine sleep. I reviewed the impact of weight changes on sleep apnea and strongly recommended losing weight. After some discussion, the patient opted to go with the nasal CPAP therapy. Nasal autoCPAP set at 4-15 cmH20 will be ordered with rationale explained. A manual titration study will be ordered if unable to find optimal pressure with office adjustments. I explained how CPAP machine works and what to expect when using the machine. Using CPAP every night in order to get used to it was emphasized. Patient advised to put CPAP mask on before getting into bed so as not to fall asleep without CPAP. To assist acclimation to CPAP use, it could also be used for a short time during day while reading or watching TV. The patient was instructed to call the CPAP supplier to discuss any mechanical problem that may occur. If the mask given is uncomfortable or is difficult to keep on through the night even with adjustment, contact the CPAP supplier as many will replace with another mask style if notified before 30 days. If snoring or perceives is not getting enough air or too much air from the machine, notify this office. Patient counseled not drink alcohol less than 4 hours before bedtime as it can increase snoring and apnea. Patient was cautioned about risks of drowsy driving until sleepiness symptoms resolve. Patient denies drowsy driving. Sleep Study - Results Prior sleep studies: No Polysomnography/Home Sleep Study results: Physician Impression: The quality of the study is good. The length of the study is adequate (> 240 minutes). Please also see the tabulated and graphic data. 1. Obstructive Sleep Apnea-Hypopnea (ICD-10 G47.33), severe, with an AHI of 34.6/hr and mckenna SaO2 of 77%. During the study, the patient had 120 apneas (120 obstructive, 0 central, 0 mixed) and 76 hypopneas. The longest episode lasted 58.5 seconds. The respiratory events occurred almost exclusively during supine sleep (supine AHI was 59.6 and non-supine, 0.83). 2. Hypoxemia (ICD-10 R09.02), moderate, with the lowest oxygen saturation of 77 % and 216.9 minutes with SaO2 under 90%. Baseline oxygen saturation was low (Average oxygen saturation was 89%). - Discussion Sleep Study discussion: Patient completed sleep study 07/12/2020 but evidently never followed up to receive his results. Subjective Initial [place] Sleepiness Scale score: 9 (in 2019) Current [place] Sleepiness Scale score: 10 (10/23/22) Allergies and Home Medications Known drug allergies: No Drug allergies reviewed: Yes Home medication list reviewed: Yes (no changes) Allergy and home medication list: Allergies strawberry Allergy (Severe, Verified 10/23/22 15:59) Anaphylaxis latex Adverse Reaction (Verified 10/23/22 15:59) Rash Review of Systems Review of systems same as previous: No (right knee repair after injury at work) Physical Exam Vital signs obtained and entered by: MONICA Singh MA Blood Pressure: 144/96 (left arm) Cuff size: long Heart Rate: 76 O2 Saturation: 99 Height: 5 ft 4 in Weight: 293 lb 12.8 oz Body Mass Index: 50.4 BMI Classification: Morbidly Obese Impression and Plan 1. Obstructive Sleep Apnea-Hypopnea Syndrome, severe, with lowest oxygen saturation of 77%. Obviously this is the cause of the patients symptoms of unrefreshed sleep, and excessive daytime sleepiness. Patient did not follow up after the sleep study but comes back now after having knee surgery and being told he really needs a CPAP. I reviewed his sleep study results with him and agree he does need to start therapy as soon as he is able. Positive pressure therapy could benefit anxiety and gastric reflux. I am going to order an APAP trial to start the patient on nasal autoCPAP therapy with pressure set at 4-15 cmH2O. Compliance guidelines also reviewed. A copy of compliance guidelines will be given for reference at check out. If his insurance requires us to re-verify his diagnosis and severity because he did not start therapy soon after the sleep study, I will have him repeat the study and then start him on CPAP therapy. Because the apnea is more severe supine, I instructed to avoid sleeping supine using pillow positioning until able to start CPAP use. He voiced understanding and agreement with plan of care. 2. Hypoxemia, moderate, with a mckenna oxygen saturation of 77% and 216.9 minutes spent under 90%. His baseline oxygen saturation was low normal with an average oxygen saturation of 89%. 3. Obesity, unspecified. Currently patients BMI is 50.4. Obesity increases the risk of apnea, CPAP pressure requirements and overall health risks especially cardiovascular and diabetes. Thus patient is advised to lose weight. * Nasal auto CPAP therapy, pressure at 4-15 cm H2O. * Obtain verifying PSG/HST if needed to start CPAP therapy * Attempt to lose weight. * Avoid alcohol consumption near bedtime. * Avoid supine sleep until using CPAP. * The patient is again cautioned about driving until sleepiness completely resol ves. * Return one month after CPAP obtained or after PSG. I will assess response to therapy and compliance at that time. Counseling Topics: Sleeping position, Weight loss health impact Prescriptions: Auto CPAP Visit Type: In Office Time Spent with Patient (minutes): 24 Provider Statement: I spent 100% of the Face to Face Visit with the patient with greater than 50% spent counseling the patient and coordination of care.
[2022-10-24 09:01] VITALS: BP 144/96
== END 2022-10-24 08:16 | disposition home or self-care (01) ==
LOC: SC 08:15
PROVIDERS: ATTEND Nurse Practitioner Family
DX: G47.33 Obstructive sleep apnea (adult) (pediatric) (principal); R09.02 Hypoxemia; E66.01 Morbid (severe) obesity due to excess calories; Z68.43 Body mass index [BMI] 50.0-59.9, adult
CPT/HCPCS: 99212

== ENCOUNTER 2022-12-25 09:17 | Outpatient (CLI) | payer MEDICAID | END 2022-12-25 09:18 | disposition home or self-care (01) | LOC: SC 09:17 | PROVIDERS: ATTEND Nurse Practitioner Family | DX: G47.33 Obstructive sleep apnea (adult) (pediatric) (principal); R09.02 Hypoxemia; Z68.43 Body mass index [BMI] 50.0-59.9, adult | CPT/HCPCS: 95806 ==

== ENCOUNTER 2023-02-22 23:52 | Emergency (ER) | payer MEDICAID ==
[2023-02-23 00:24] VITALS: BP 151/89; O2SAT 98
[2023-02-23] MEDS ORDERED: KETOROLAC 30 MG/ML VIAL IM STA (00:47)
[2023-02-23] MEDS ORDERED: predniSONE 20 MG TABLET PO STA (00:47)
--- NOTE | 2023-02-23 00:56 | ED Physician Documentation ---
History of Present Illness - Stated complaint Stated Complaint: R FOOT PX - Chief complaint Chief Complaint: Ext Problem - History obtained from History obtained from: Patient - Additonal information Additional information: 37-year-old male presents for gout flareup in his right foot. Patient States that he has gout flareups once or twice a year and they usually go away in 2 to 3 days, however he has been dealing with pain for 1 week. He was previously given a prescription for antigout medication, however it was going to be $400 and he could not afford it. He does not remember the name of this medication. He states he has never been told about diet involvement and gout flareups. He has been taking Tylenol and Motrin at home without significant relief of pain. Review of Systems Constitutional: denies: Fever, Chills Cardiac: denies: Chest pain / pressure, Palpitations, Calf pain Respiratory: denies: Dyspnea, Cough, Wheezing GI: denies: Abdominal Pain, Nausea, Vomiting Musculoskeletal: reports: Extremity pain. denies: Neck pain, Back pain, Joint pain, Extremity swelling PD PAST MEDICAL HISTORY - Past Medical History Past Medical History: Yes Cardiovascular: None Respiratory: Sleep apnea Neuro: None Endocrine/Autoimmune: None GI: GERD, Other : None HEENT: None Psych: Claustrophobia Musculoskeletal: Gout Derm: None - Past Surgical History Past Surgical History: Yes General: Hiatal hernia repair, Other Ortho: Other - Present Medications Home Medications: Ambulatory Orders Medication Instructions Recorded Confirmed Acetaminophen [Tylenol] 500 mg PO DAILY PRN 09/11/22 02/23/23 Ibuprofen 200 mg PO DAILY PRN 09/11/22 02/23/23 Colchicine 0.6 mg PO DAILY #30 tablet 02/23/23 predniSONE [Deltasone] 20 mg PO UD #21 tab 02/23/23 - Allergies Allergies/Adverse Reactions: Allergies Allergy/AdvReac Type Severity Reaction Status Date / Time strawberry Allergy Severe Anaphylaxis Verified 01/27/23 09:12 latex AdvReac Rash Verified 01/27/23 09:12 - Social History Does the pt smoke?: Yes Smoking Status: Current every day smoker Does the pt drink ETOH?: Yes Does the pt have substance abuse?: No - Immunizations Immunizations are current?: Yes - POLST Patient has POLST: No PD ED PE NORMAL - Vitals Vital signs reviewed: Yes - General General: Alert and oriented X 3, No acute distress, Well developed/nourished - HEENT HEENT: Atraumatic - Neck Neck: Supple, no meningeal sign - Cardiac Cardiac: RRR, Strong equal pulses - Respiratory Respiratory: No respiratory distress, Clear bilaterally - Abdomen Abdomen: Soft, Non tender - Derm Derm: Warm and dry, No rash, Other (erythema and swelling over R big toe) - Extremities Extremities: Normal ROM s pain, Other (erythema R great toe) - Neuro Neuro: Alert and oriented X 3, director motion picture 2-12 intact, No motor deficit, Normal speech - Psych Psych: Normal mood, Normal affect Results - Vitals Vitals: Vital Signs - 24 hr 02/23/23 00:11 Temperature 36.5 C Heart Rate 91 Respiratory 16 Rate Blood Pressure 151/89 H O2 Saturation 98 Oxygen O2 Source Room air PD Medical Decision Making - ED course Complexity details: re-evaluated patient, considered differential, d/w patient ED course: Gout flareup. Patient states that he eats lots of red meat and does drink beer at least twice a week. He states that he has never been told about diet and gout flares. Patient was advised of diet changes to make to avoid gout flareups in the future. Patient was given a shot of Toradol and a dose of prednisone in the emergency department. Will discharge on colchicine and prednisone. He was informed of good [facility], a coupon on [facility] decreases the stone of colchicine to just $12 for a 1 month supply. He states that he can afford this medication. He denies known history of diabetes. He will follow with the primary care physician for further management of his gout. Departure - Departure Disposition: 01 Home, Self Care Clinical Impression: Gout flare Qualifiers: Gout site: foot Gout etiology: unspecified cause Laterality: right Qualified Code(s): M10.9 - Gout, unspecified Condition: Stable Instructions: Gout, ED Diet Gout Prescriptions: Colchicine 0.6 mg PO DAILY #30 tablet predniSONE [Deltasone] 20 mg PO UD #21 tab Comments: You are seen today for a gout flareup in your foot. Please make sure to follow- up with her primary care physician. Colchicine is an anti-inflammatory that should be taken for gout flareups. The prednisone taper should also help with the gout flare. Use [employer] for coupons to help with medication affordibility Forms: PCP List Discharge Date/Time: 02/23/23 01:04
== END 2023-02-23 01:04 | disposition home or self-care (01) ==
LOC: ED 23:52
DX: M10.9 Gout, unspecified (principal); F17.200 Nicotine dependence, unspecified, uncomplicated
CPT/HCPCS: 96372; 99283; 99284; J7512

== ENCOUNTER 2023-03-18 13:00 | Outpatient (CLI) | payer MEDICAID ==
--- NOTE | 2023-03-18 13:58 | SLEEP CARE CONSULTATION ---
Information from patient questionnaire entered by Krissy Syed. I have reviewed and concur with the information entered by Krissy Syed. This document represents the service I personally performed and the decisions made by , Keiry Servin ARNP. History of Present Illness Service Date and Time: 03/18/2023 1300 Previous diagnosis: Severe, Obstructive Sleep Apnea-Hypopnea Syndrome AHI: 47.5 (12/2022 (34.6 in 2020)) Reason for follow up: first compliance Equipment type: CPAP (ResMed Airsense 11; s/u 02/2023) Equipment obtained from: [employer] (got initial supplies) Mask style: Nasal (Eson 2) Mask brand: [employer] Backup mask available: No (will keep old mask when replaced) Last cushion change: 1 month or so Prior sleep studies: No Type of Sleep Study: Home sleep study (COMPLETED 12/25/22) HPI additional information: VALENTIN FLORES was diagnosed to have severe, AHI 47.5, obstructive sleep apnea- hypopnea syndrome and returned today for CPAP therapy first compliance follow- up. Sleep Study - Results Type of Sleep Study: Home sleep study (COMPLETED 12/25/22) Prior sleep studies: No CPAP Compliance Data - Data Reviewed with Patient Average duration of nightly device use: 5 hours 33 minutes Compliance rate %: 87 (30/30 days used) Current pressure setting (cmH2O): 5-15 (median 9.2, avg 12.7, max 13.6) Average residual AHI: 0.2 Central apnea: 0 Obstructive apnea: 0.1 Average large leak: 4.2 L/min Subjective Patient concerns: reports: air blowing in eyes, mask leak noise, condensation in mask/hose, dry mouth, nose, throat. denies: aerophagia, mask discomfort, nasal congestion, epistaxis Observed to snore while using device: No Current pressure setting perceived as: comfortable On therapy, patient: reports: sleeping better, awakening more refreshed, being more awake and alert during the day, more rested overall. denies: drowsiness while driving Initial [place] Sleepiness Scale score: 9 (in 2019) Current [place] Sleepiness Scale score: 4 (03/18/23) Allergies and Home Medications Known drug allergies: Yes (as listed) Drug allergies reviewed: Yes Home medication list reviewed: Yes (no changes) Allergy and home medication list: Allergies strawberry Allergy (Severe, Verified 03/17/23 10:09) Anaphylaxis latex Adverse Reaction (Verified 03/17/23 10:09) Rash Review of Systems Review of systems same as previous: Yes (NO CHANGE) Physical Exam Vital signs obtained and entered by: KRISSY Singh MA Blood Pressure: 128/80 (LEFT ARM) Cuff size: long Heart Rate: 82 O2 Saturation: 97 Height: 5 ft 4 in Weight: 296 lb 9.6 oz Body Mass Index: 50.9 BMI Classification: Morbidly Obese Impression and Plan 1. Obstructive Sleep Apnea-Hypopnea Syndrome, severe, with good treatment compliance and good apnea control. On CPAP therapy, the patient has better sleep quality and is more rested overall. Patient has significant improvement of their sleep apnea and is satisfied with current CPAP therapy. He has been having trouble with his current F&P Eson 2 because it will move unless he stays in one position. I showed him and fitted him to a Dreamwisp, large headgear and cushio n, to try at home. The patients pressure will be changed to autoCPAP 8-12 cmH20 to reflect pressure being used. Patient advised to contact me if pressure change is uncomfortable so that it can be adjusted. Goals for apnea control discussed. Patient's apnea severity and rationale for treatment to reduce apnea, improve sleep quality and reduce cardiovascular and cerebrovascular events was reviewed. I also reviewed the benefit of consistent device use of CPAP for gastric reflux and anxiety. 2. Obesity, unspecified. Currently patients BMI is 50.9. Obesity increases the risk of apnea, CPAP pressure requirements and overall health risks especially cardiovascular and diabetes. Thus patient is advised to lose weight. * Change auto CPAP pressure to 8-12 cmH2O * Patient fitted to Dreamwisp, large cushion, large headgear and sample sent home with patient to try * Notify me if snoring with mask or feeling that the pressure is too much or too little * Attempt to lose weight * Call this office if any problems using CPAP * Return for follow up in 1-2 months, or sooner if concerns arise Mask provided: Yes Counseling Topics: Spare mask, Weight loss health impact Follow up with Sleep Care in: 1-2 months Visit Type: In Office Time Spent with Patient (minutes): 25 Provider Statement: I spent 100% of the Face to Face Visit with the patient with greater than 50% spent counseling the patient and coordination of care.
[2023-03-18 14:18] VITALS: BP 128/80; O2SAT 97
== END 2023-03-18 13:01 | disposition home or self-care (01) ==
LOC: SC 13:00
PROVIDERS: ATTEND Nurse Practitioner Family
DX: G47.33 Obstructive sleep apnea (adult) (pediatric) (principal); E66.01 Morbid (severe) obesity due to excess calories; Z68.43 Body mass index [BMI] 50.0-59.9, adult
CPT/HCPCS: 99212; 99213

== ENCOUNTER 2023-03-25 13:22 | Emergency (ER) | payer MEDICAID ==
[2023-03-25] MEDS ORDERED: AMPICILLIN/SULBACTAM 3 GM in SODIUM CHLORIDE 0.9% MINIBAG 100 ML IV STA (13:55)
[2023-03-25] MEDS ORDERED: DEXAMETHASONE 10 MG/ML VIAL IVP STA (13:55)
--- NOTE | 2023-03-25 13:55 | ED Physician Documentation ---
History of Present Illness - Stated complaint Stated Complaint: FACIAL SWELLING - Chief complaint Chief Complaint: Heent - History obtained from History obtained from: Patient - Additonal information Additional information: 37-year-old gentleman whose had recent dental pain and went to see more yesterday and prescribed amoxicillin and referred to oral surgery. Developed significant facial swelling today. No measured fevers but feels hot and cold. PD PAST MEDICAL HISTORY - Past Medical History Past Medical History: Yes Cardiovascular: None Respiratory: Sleep apnea Neuro: None Endocrine/Autoimmune: None GI: GERD, Other : None HEENT: None Psych: Claustrophobia Musculoskeletal: Gout Derm: None - Past Surgical History Past Surgical History: Yes General: Hiatal hernia repair, Other Ortho: Other - Present Medications Home Medications: Ambulatory Orders Medication Instructions Recorded Confirmed Acetaminophen [Tylenol] 500 mg PO DAILY PRN 09/11/22 02/23/23 Ibuprofen 200 mg PO DAILY PRN 09/11/22 02/23/23 Colchicine 0.6 mg PO DAILY #30 tablet 02/23/23 predniSONE [Deltasone] 20 mg PO UD #21 tab 02/23/23 - Allergies Allergies/Adverse Reactions: Allergies Allergy/AdvReac Type Severity Reaction Status Date / Time strawberry Allergy Severe Anaphylaxis Verified 03/25/23 13:41 latex AdvReac Rash Verified 03/25/23 13:41 - Social History Does the pt smoke?: Yes Smoking Status: Current every day smoker Does the pt drink ETOH?: Yes Does the pt have substance abuse?: No - Immunizations Immunizations are current?: Yes - POLST Patient has POLST: No PD ED PE NORMAL - Vitals Vital signs reviewed: Yes - General General: Alert and oriented X 3, No acute distress - HEENT HEENT: Other (The culprit tooth looks to be the last/wisdom tooth on the left mandible. He has trismus and overlying facial swelling. Phonation is normal. No sublingual edema.) - Neuro Neuro: Alert and oriented X 3, Normal speech Results - Vitals Vitals: Vital Signs - 24 hr 03/25/23 13:37 Temperature 36.5 C Heart Rate 96 Respiratory 18 Rate Blood Pressure 150/100 H O2 Saturation 99 Oxygen O2 Source Room air PD Medical Decision Making - ED course ED course: 37-year-old gentleman with dental infection and abscess. He does have facial cellulitis. IV Unasyn ordered. I did reach out to local [facility], Dr. [place] who is not in town currently. Subsequent to the administration of IV Unasyn and Decadron he was feeling like his swelling was better. He had less trismus. I offered to attempt a buccal I&D but he declined. Departure - Departure Disposition: Home, Self Care Clinical Impression: Dental abscess Condition: Good Record reviewed to determine appropriate education?: Yes Instructions: ED Abscess Dental Comments: Continue the antibiotics were given and call the facial surgeon you were given referral to. Return if worse. I would take the next dose of antibiotics at bedtime tonight. Forms: PCP List
[2023-03-25 15:20] VITALS: BP 144/98; O2SAT 95
== END 2023-03-25 15:18 | disposition home or self-care (01) ==
LOC: ED 13:22
DX: K04.7 Periapical abscess without sinus (principal); L03.211 Cellulitis of face; F17.200 Nicotine dependence, unspecified, uncomplicated
CPT/HCPCS: 96374; 96375; 99283

== ENCOUNTER 2023-05-13 09:50 | Outpatient (CLI) | payer MEDICAID ==
--- NOTE | 2023-05-13 11:01 | Sleep Patient Instructions ---
Sleep Center Visit Summary - Patient Visit Information Reason for Visit: 2-month follow-up - Patient Instructions Additional Instructions: You were here for follow up of CPAP therapy. You will be continued on CPAP therapy with pressure at 8-12 cmH2O. I have changed the mask to the Hina Nuance Pro nasal pillows mask, sample sent home with you. A prescription with the change sent to your CPAP supplier. You should follow up with sleep care in 3 months. You may contact us sooner for any questions or concerns. - Clinic Information Contact: [facility] [address] [place] [address] [email or web address] T: [phone]
--- NOTE | 2023-05-13 11:05 | SLEEP CARE CONSULTATION ---
Information from patient questionnaire entered by Monica Syed. I have reviewed and concur with the information entered by Monica Syed. This document represents the service I personally performed and the decisions made by , Keiry Servin ARNP. History of Present Illness Service Date and Time: 05/13/2023 0950 Previous diagnosis: Severe, Obstructive Sleep Apnea-Hypopnea Syndrome AHI: 47.5 (12/2022, 34.6 in 2020)) Reason for follow up: other (2 MONTH F/U) Equipment type: CPAP (RESMED Airsense 11, s/u 02/2023) Equipment obtained from: [employer] Mask style: Nasal Backup mask available: No Prior sleep studies: No Type of Sleep Study: Home sleep study (COMPLETED 12/25/22) HPI additional information: VALENTIN FLORES was diagnosed to have severe, AHI 47.5, obstructive sleep apnea- hypopnea syndrome and returned today for CPAP therapy two month with pressure c montse follow-up. Sleep Study - Results Type of Sleep Study: Home sleep study (COMPLETED 12/25/22) Prior sleep studies: No CPAP Compliance Data - Data Reviewed with Patient Average duration of nightly device use: 5 HRS 23 MINS Compliance rate %: 73 (03/09/23-05/07/23; 58/60 days used) Current pressure setting (cmH2O): 8-12 Average residual AHI: 0.1 Central apnea: 0 Obstructive apnea: 0.1 Hypopnea: 4.5 L/min Subjective Missed days of use due to: reports: mask issues Patient concerns: reports: mask discomfort, air blowing in eyes, mask leak noise, nasal congestion, dry mouth, nose, throat. denies: aerophagia, condensation in mask/hose, epistaxis Observed to snore while using device: Yes (occasionally) Current pressure setting perceived as: comfortable On therapy, patient: reports: sleeping better, awakening more refreshed, being more awake and alert during the day, more rested overall. denies: drowsiness while driving Initial [place] Sleepiness Scale score: 9 (in 2019) Current [place] Sleepiness Scale score: 4 Allergies and Home Medications Known drug allergies: Yes (as listed) Drug allergies reviewed: Yes Home medication list reviewed: Yes (Wellbutrin) Allergy and home medication list: Allergies strawberry Allergy (Severe, Verified 05/08/23 16:40) Anaphylaxis latex Adverse Reaction (Verified 05/08/23 16:40) Rash Review of Systems Review of systems same as previous: Yes (NO CHANGE) Physical Exam Vital signs obtained and entered by: MONICA Singh MA Blood Pressure: 149/99 (RIGHT ARM) Cuff size: long Heart Rate: 82 O2 Saturation: 97 Height: 5 ft 5 in Weight: 290 lb Body Mass Index: 48.2 BMI Classification: Morbidly Obese Impression and Plan 1. Obstructive Sleep Apnea-Hypopnea Syndrome, severe, with good treatment compliance and good apnea control. On CPAP therapy, the patient has better sleep quality and is more rested overall. He has been having lots of mask issues with his nasal cushion, over the nose, mask. I fit him to a Hina Nuance Pro with gel nasal pillows, large cushion, with a good fit and sent the sample home with him. He felt that it would work much better than the other mask that was leaking into his eyes, etc. He also wanted something that would work with a full martines and mustache because he is tired of shaving. Patient's apnea severity and rationale for treatment to reduce apnea, improve sleep quality and reduce cardiovascular and cerebrovascular events was reviewed. I also reviewed the benefit of consistent device use of CPAP for gastric reflux and anxiety. 2. Obesity, unspecified. Currently patients BMI is 48.2. Obesity increases the risk of apnea, CPAP pressure requirements and overall health risks especially cardiovascular and diabetes. Thus patient is advised to lose weight. * Continue auto CPAP pressure at 8-12 cmH2O * Fit to a Hina Nuance Pro with gel pillows mask, large cushion * Notify me if snoring with mask or feeling that the pressure is too much or too little * Attempt to lose weight * Call this office if any problems using CPAP * Return for follow up in 3 months, or sooner if concerns arise Mask provided: Yes Counseling Topics: Spare mask, Weight loss health impact Follow up with Sleep Care in: 3 months Visit Type: In Office Time Spent with Patient (minutes): 23 Provider Statement: I spent 100% of the Face to Face Visit with the patient with greater than 50% spent counseling the patient and coordination of care.
[2023-05-13 11:20] VITALS: BP 149/99; O2SAT 97
== END 2023-05-13 09:51 | disposition home or self-care (01) ==
LOC: SC 09:50
PROVIDERS: ATTEND Nurse Practitioner Family
DX: G47.33 Obstructive sleep apnea (adult) (pediatric) (principal); E66.01 Morbid (severe) obesity due to excess calories; Z68.42 Body mass index [BMI] 45.0-49.9, adult
CPT/HCPCS: 99212; 99213

== ENCOUNTER 2023-06-05 08:24 | Outpatient (CLI) | payer MEDICAID ==
[2023-06-05 14:52] LABS: BASOPHILS # (AUTO) 0.1 10^3/uL (0.0-0.1); BASOPHILS % (AUTO) 0.7 %; EOSINOPHILS # (AUTO) 0.1 10^3/uL (0.0-0.7); EOSINOPHILS % (AUTO) 1.7 %; HCT - HEMATOCRIT 51.7 % (42.0-52.0); HGB - HEMOGLOBIN 16.6 g/dL (14.0-18.0); LYMPHOCYTES # (AUTO) 0.9 10^3/uL (1.5-3.5); LYMPHOCYTES % (AUTO) 12.1 %; MEAN CORPUSCULAR HEMOGLOBIN 31.7 pg (27.0-31.0); MEAN CORPUSCULAR HGB CONC 32.1 g/dL (32.0-36.0); MEAN CORPUSCULAR VOLUME 98.7 fL (80.0-94.0); MEAN PLATELET VOLUME 9.9 fL (7.4-11.4); MONOCYTES # (AUTO) 0.4 10^3/uL (0.0-1.0); MONOCYTES % (AUTO) 5.3 %; NEUTROPHILS # (AUTO) 6.1 10^3/uL (1.5-6.6); NEUTROPHILS % (AUTO) 79.9 %; PLT - PLATELET COUNT 260 10^3/uL (130-450); RED BLOOD COUNT 5.24 10^6/uL (4.70-6.10); RED CELL DISTRIBUTION WIDTH 14.2 % (12.0-15.0); WHITE BLOOD COUNT 7.6 x10^3/uL (4.8-10.8)
[2023-06-05 16:01] LABS: THYROID STIMULATING HORMONE 1.83 uIU/mL (0.34-5.60)
[2023-06-05 16:07] LABS: FERRITIN 73.2 ng/mL (23.9-336.2)
[2023-06-05 16:16] LABS: % IRON SATURATION 14 % (20-50); ALBUMIN 3.9 g/dL (3.2-5.5); ALBUMIN/GLOBULIN RATIO 1.4 (1.0-2.2); ALKALINE PHOSPHATASE 85 IU/L (42-121); ALT ALANINE AMINOTRANSFERASE 25 IU/L (10-60); AST ASPARTATE AMINOTRANSFERASE 19 IU/L (10-42); BILIRUBIN,TOTAL 0.9 mg/dL (0.2-1.0); BUN - BLOOD UREA NITROGEN 9 mg/dL (6-20); CALCIUM 9.3 mg/dL (8.5-10.3); CARBON DIOXIDE - CO2 24 mmol/L (21-32); CHLORIDE 105 mmol/L (101-111); CHOL/HDL RATIO 6.6 (<5.0); CHOLESTEROL 210 mg/dL; CREATININE 1.2 mg/dL (0.6-1.3); GFR - MDRD 69 (>89); GLUCOSE 98 mg/dL (74-104); HDL CHOLESTEROL 32 mg/dL; IRON 51 ug/dL (50-212); POTASSIUM 4.5 mmol/L (3.5-4.5); SODIUM 136 mmol/L (135-145); TOTAL IRON BINDING CAPACITY 365 ug/dL (250-450); TOTAL PROTEIN 6.6 g/dL (6.4-8.9); TRANSFERRIN 261 mg/dL (203-362); TRIGLYCERIDES 588 mg/dL (48-352)
[2023-06-05 17:22] LABS: LDL CHOLESTEROL,DIRECT 100 mg/dL (75-193); LDLD/HDL RATIO 3.1 (<3.6)
[2023-06-05 19:57] LABS: ESTIMATED AVERAGE GLUCOSE 103 mg/dL (70-100); HEMOGLOBIN A1c% 5.2 % (4.27-6.07)
== END 2023-06-05 08:25 | disposition home or self-care (01) ==
LOC: LAB.S 08:24
PROVIDERS: ATTEND Physician Assistant Medical
DX: R25.1 Tremor, unspecified (principal); R53.83 Other fatigue; Z13.9 Encounter for screening, unspecified; F41.9 Anxiety disorder, unspecified; F32.A Depression, unspecified
CPT/HCPCS: 36415; 80050; 80061; 82306; 82607; 82728; 83036; 83540; 83721; 84403; 84466

== ENCOUNTER 2023-06-13 08:00 | Outpatient (CLI) | payer MEDICAID | END 2023-06-13 23:59 | disposition home or self-care (01) | LOC: LAB.S 08:00 | PROVIDERS: ATTEND Emergency Medicine | DX: J02.9 Acute pharyngitis, unspecified (principal) | CPT/HCPCS: 87070 ==

== ENCOUNTER 2023-06-18 15:10 | Emergency (ER) | payer MEDICAID ==
[2023-06-18 15:32] VITALS: O2SAT 100
--- NOTE | 2023-06-18 15:32 | ED Physician Documentation ---
History of Present Illness - Stated complaint Stated Complaint: LT SIDE FACE SWELLING,TOOTH PX - Chief complaint Chief Complaint: Heent - History obtained from History obtained from: Patient - Additonal information Additional information: He has a known bad tooth on the left mandible. He has had an infected before was actually seen for almost exactly the same thing a few days before Thanksgiving of last year. Over the last couple of days has developed significant facial swelling and moderate pain although pain seems better now. He also notices he cannot open his mouth as wide as usual. He has not followed up with a dentist in the interim. PD PAST MEDICAL HISTORY - Past Medical History Cardiovascular: None Respiratory: Sleep apnea Neuro: None Endocrine/Autoimmune: None GI: GERD, Other : None HEENT: None Psych: Claustrophobia Musculoskeletal: Gout Derm: None - Past Surgical History Past Surgical History: Yes General: Hiatal hernia repair, Other Ortho: Other - Present Medications Home Medications: Ambulatory Orders Medication Instructions Recorded Confirmed Amox/Clav 875/125 [Augmentin 1 tab PO DAILY 06/18/23 875/125 Tab] - Allergies Allergies/Adverse Reactions: Allergies Allergy/AdvReac Type Severity Reaction Status Date / Time strawberry Allergy Severe Anaphylaxis Verified 06/18/23 15:25 latex AdvReac Rash Verified 06/18/23 15:25 - Social History Does the pt smoke?: Yes Smoking Status: Current every day smoker Does the pt drink ETOH?: Yes Does the pt have substance abuse?: No - Immunizations Immunizations are current?: Yes - POLST Patient has POLST: No PD ED PE NORMAL - Vitals Vital signs reviewed: Yes - General General: Alert and oriented X 3, No acute distress - HEENT HEENT: Other (He has significant facial swelling on the left with moderate trismus about 2 cm between the incisors. There is a buccal abscess with dental carry on the left mandible.) - Neck Neck: Supple, no meningeal sign, No bony TTP - Neuro Neuro: Alert and oriented X 3, Normal speech Results - Vitals Vitals: Vital Signs - 24 hr 06/18/23 15:19 Temperature 36.8 C Heart Rate 100 Respiratory 16 Rate Blood Pressure 129/84 H O2 Saturation 100 Oxygen O2 Source Room air Procedures - General procedure General procedure: Dental abscess, the area around the dental abscess on the left mandible laterally was infiltrated with buffered lidocaine and then a couple of stab incisions were made with some return of pus and patient tolerated well. PD Medical Decision Making - ED course ED course: 38-year-old gentleman with dental abscess, He received IV Unasyn and Decadron and Toradol here with some relief. An I&D of the gumline was done. Counseled on the need to follow-up. He is already on amoxicillin and has hydrocodone at home from his PCP. Departure - Departure Disposition: Home, Self Care Clinical Impression: Dental abscess Condition: Good Record reviewed to determine appropriate education?: Yes Instructions: ED Dental Abscess Facial Cellulitis Comments: Continue the antibiotics you are already on. Return for new or worsening symptoms. It is very important that you follow-up with a dentist. When it comes to dental problems like yours, the emergency department can only offer a short-term solution to your long-term problem. A couple of low cost options for dental care include: [facility] in [place], calls [phone] for an appointment Or [facility] in [place], call [phone] for an appointment. Forms: PCP List
[2023-06-18] MEDS: DEXAMETHASONE 10 MG/ML VIAL IVP STA (15:58)
[2023-06-18] MEDS: BUFFERED LIDOCAINE 10 ML SYRINGE SUBQ STA (15:58)
[2023-06-18] MEDS: KETOROLAC 15 MG/ML VIAL IVP STA (15:58)
[2023-06-18] MEDS: AMPICILLIN/SULBACTAM 3 GM in SODIUM CHLORIDE 0.9% MINIBAG 100 ML IV STA (16:16)
[2023-06-18 17:29] VITALS: BP 144/88
== END 2023-06-18 17:25 | disposition home or self-care (01) ==
LOC: ED 15:10
DX: K02.9 Dental caries, unspecified (principal); F17.200 Nicotine dependence, unspecified, uncomplicated
CPT/HCPCS: 36415; 41800

== ENCOUNTER 2023-08-12 09:32 | Outpatient (CLI) | payer MEDICAID ==
--- NOTE | 2023-08-12 09:59 | Sleep Patient Instructions ---
Sleep Center Visit Summary - Patient Visit Information Reason for Visit: 3-month follow-up - Patient Instructions Additional Instructions: You were here for follow up of CPAP therapy. You will be continued on CPAP therapy with pressure at 8-12 cmH2O. You should follow up with sleep care in 6 months. You may contact us sooner for any questions or concerns. - Clinic Information Contact: [facility] [address] [place] [address] [email or web address] T: [phone]
--- NOTE | 2023-08-12 10:05 | SLEEP CARE CONSULTATION ---
Information from patient questionnaire entered by Krissy Syed. I have reviewed and concur with the information entered by Krissy Syed. This document represents the service I personally performed and the decisions made by me, Keiry Servin ARNP. History of Present Illness Service Date and Time: 08/12/2023931 Previous diagnosis: Severe, Obstructive Sleep Apnea-Hypopnea Syndrome AHI: 47.5 (12/2022, 34.6 in 2020)) Reason for follow up: three month Equipment type: CPAP (RESMED Airsense 11, s/u 02/2023) Equipment obtained from: [employer] ([employer]) Mask style: Nasal Backup mask available: Yes Last cushion change: 1 week Prior sleep studies: No Type of Sleep Study: Home sleep study (COMPLETED 12/25/22) HPI additional information: VALENTIN FLORES was diagnosed to have severe, AHI 47.5, obstructive sleep apnea- hypopnea syndrome and returned today for CPAP therapy three month follow-up. Sleep Study - Results Type of Sleep Study: Home sleep study (COMPLETED 12/25/22) Prior sleep studies: No CPAP Compliance Data - Data Reviewed with Patient Average duration of nightly device use: 5 HRS 28 MINS Compliance rate %: 74 (05/10/23-08/07/23; 85/90 days used) Current pressure setting (cmH2O): 8-12 Average residual AHI: 0.1 Central apnea: 0 Obstructive apnea: 0 Hypopnea: 0 Average large leak: 5.8 days used Subjective Missed days of use due to: reports: illness (Covid), other (fell asleep without mask) Patient concerns: reports: mask leak noise (tubing has hole in it), dry mouth, nose, throat (dry mouth and throat), other (hole in tube from cat). denies: aerophagia, mask discomfort, air blowing in eyes, condensation in mask/hose, nasal congestion, epistaxis Observed to snore while using device: Yes (per from nose, congestion; not often) Current pressure setting perceived as: comfortable On therapy, patient: reports: sleeping better, awakening more refreshed, being more awake and alert during the day, more rested overall. denies: drowsiness while driving Initial Reading Sleepiness Scale score: 9 (in 2019) Current Reading Sleepiness Scale score: 2 (08/12/23) Allergies and Home Medications Known drug allergies: Yes (as listed) Drug allergies reviewed: Yes Home medication list reviewed: Yes (no changes) Allergy and home medication list: Allergies strawberry Allergy (Severe, Verified 08/08/23 12:39) Anaphylaxis latex Adverse Reaction (Verified 08/08/23 12:39) Rash Review of Systems Review of systems same as previous: Yes (NO CHANGE) Physical Exam Vital signs obtained and entered by: KRISSY Singh MA Blood Pressure: 143/94 (RIGHT ARM) Cuff size: regular Heart Rate: 82 O2 Saturation: 96 Height: 5 ft 5 in Weight: 286 lb 6.4 oz Body Mass Index: 47.6 BMI Classification: Morbidly Obese Impression and Plan 1. Obstructive Sleep Apnea-Hypopnea Syndrome, severe, with good treatment compliance and good apnea control. On CPAP therapy, the patient has better sleep quality and is more rested overall. Patient has been able to use it compliantly although he has had difficulty with using the machine when he has had congestion. His cat bit through his hose and there is an air leak that is disturbing his 's sleep. He is waiting for supplies from his DME supplier. Patient has significant improvement of their sleep apnea and is satisfied with current CPAP therapy. Patient's apnea severity and rationale for treatment to reduce apnea, improve sleep quality and reduce cardiovascular and cerebrovascular events was reviewed. I also reviewed the benefit of consistent device use of CPAP for gastric reflux, anxiety. 2. Obesity, unspecified. Currently patients BMI is 47.6. Obesity increases the risk of apnea, CPAP pressure requirements and overall health risks especially cardiovascular and diabetes. Thus patient is advised to lose weight. * Continue auto CPAP pressure at 8-12 cmH2O * Notify me if snoring with mask or feeling that the pressure is too much or too little * Attempt to lose weight * Call this office if any problems using CPAP * Return for follow up in 6 months, or sooner if concerns arise Counseling Topics: Spare mask, Weight loss health impact Follow up with Sleep Care in: 6 months Visit Type: In Office Time Spent with Patient (minutes): 21 Provider Statement: I spent 100% of the Face to Face Visit with the patient with greater than 50% spent counseling the patient and coordination of care.
[2023-08-12 10:09] VITALS: BP 143/94; O2SAT 96
== END 2023-08-12 09:33 | disposition home or self-care (01) ==
LOC: SC 09:32
PROVIDERS: ATTEND Nurse Practitioner Family
DX: G47.33 Obstructive sleep apnea (adult) (pediatric) (principal); E66.01 Morbid (severe) obesity due to excess calories; Z68.42 Body mass index [BMI] 45.0-49.9, adult
CPT/HCPCS: 99212; 99213

== ENCOUNTER 2023-12-11 07:00 | Outpatient (CLI) | payer MEDICAID ==
--- NOTE | 2023-12-11 15:46 | XRAY Report ---
PROCEDURE: Shoulder 2+V LT INDICATIONS: LEFT SHOULDER PAIN/CERVICAL RADICULOPATHY TECHNIQUE: 3 views of the shoulder were acquired. COMPARISON: None. FINDINGS: Bones: No fractures or dislocations. No suspicious bony lesions. Visualized ribs appear intact. Soft tissues: No suspicious soft tissue calcifications. The visualized lungs are within normal limi ts. IMPRESSION: No acute bony abnormality. If pain persists with conservative management, consider repeat x-ray in 10 -14 days or cross-sectional imaging. Reviewed by: Derrell Gutiérrez MD on 12/11/2023 3:44 PM PDT Approved by: Derrell Gutiérrez MD on 12/11/2023 3:44 PM PDT Station ID: [id number]
--- NOTE | 2023-12-11 15:46 | XRAY Report ---
PROCEDURE: Cervical Spine 2-3V INDICATIONS: LEFT SHOULDER PAIN/CERVICAL RADICULOPATHY TECHNIQUE: 3 view(s) of the cervical spine were acquired. COMPARISON: None. FINDINGS: Bones: No fractures or dislocations to the C7 level. Straightening of the normal cervical lordosis. The lateral masses of C1 appear intact on the odontoid view. No suspicious bony lesions. Soft tissues: No prevertebral soft tissue swelling. IMPRESSION: No significant degenerative changes. Straightening of the normal cervical lordosis. Reviewed by: Derrell Gutiérrez MD on 12/11/2023 3:45 PM PDT Approved by: Derrell Gutiérrez MD on 12/11/2023 3:45 PM PDT Station ID: [id number]
== END 2023-12-11 23:59 | disposition home or self-care (01) ==
LOC: DI.S 07:00
PROVIDERS: ATTEND Registered Nurse
DX: M25.512 Pain in left shoulder (principal); M54.12 Radiculopathy, cervical region